=== PATIENT | male | born 1995 | race American Indian/Alaskan Native ===

== ENCOUNTER 2019-05-27 22:39 | Emergency (ER) | payer SELFPAY ==
[2019-05-27] MEDS ORDERED: IBUPROFEN 600 MG TAB PO ONE (23:12)
[2019-05-27 23:38] LABS: Hematocrit 48.4 % (35.5-45.6); Hemoglobin 15.8 gm/dl (11.8-15.2); Mean Corpuscular HGB Conc 33 % (32-34); Mean Corpuscular Volume 89 fl (84-94); Platelet Count 189 K/mm3 (140-440); Red Blood Count 5.45 M/mm3 (3.65-5.03); Red Cell Distribution Width 14.3 % (13.2-15.2)
[2019-05-28 00:23] LABS: Alanine Aminotransferase 9 units/L (7-56); Albumin 4.7 g/dL (3.9-5); BUN/Creatinine Ratio 12; Blood Urea Nitrogen 11 mg/dL (9-20); Calcium 9.6 mg/dL (8.4-10.2); Hemolysis Index 55
[2019-05-28] MEDS ORDERED: SODIUM CHLORIDE 0.9% 1000 ML 1,000 ML IV ONE (00:25)
[2019-05-28] MEDS ORDERED: ACETAMINOPHEN 325 MG TAB PO ONE (00:25)
--- NOTE | 2019-05-28 00:26 | XRay Report ---
CHEST 2 VIEWS INDICATION / CLINICAL INFORMATION: fever passed out. COMPARISON: None available. FINDINGS: SUPPORT DEVICES: None. HEART / MEDIASTINUM: No significant abnormality. LUNGS / PLEURA: No significant pulmonary or pleural abnormality. No pneumothorax. ADDITIONAL FINDINGS: No significant additional findings. IMPRESSION: 1. No acute findings. Signer Name: Parth Gunderson MD Signed: 05/28/2019 12:22 AM Workstation Name: [id number]
--- NOTE | 2019-05-28 00:41 | Emergency Department Report ---
HPI - General Chief Complaint: Fever Time Seen by Provider: 05/28/19 00:19 - HPI HPI: 24-year-old -[place] male presents to the emergency department with complaint of a 2-day history of fever, headache, sore throat. The patient took Tylenol earlier today without much relief. Patient also says that he passed out while riding in the car with his sister on the way to the hospital. He denies any cough, shortness of breath, vomiting, vision change, slurred speech. No past medical history. No recent travel or sick contacts at home. ED Past Medical Hx - Past Medical History Previous Medical History?: No - Surgical History Past Surgical History?: No - Social History Smoking Status: Former Smoker Substance Use Type: None - Medications Home Medications: Home Medications Medication Instructions Recorded Confirmed Last Taken Type Amoxicillin/Potassium Clav 1 each PO BID #14 tablet 05/28/19 Unknown Rx [Augmentin 875-125 Tablet] ED Review of Systems ROS: Stated complaint: CARTER/FEVER/SORE THROAT/PASSING OUT Other details as noted in HPI Constitutional: chills, fever Eyes: denies: eye pain, vision change ENT: throat pain. denies: ear pain Respiratory: denies: cough, shortness of breath Cardiovascular: syncope. denies: chest pain Gastrointestinal: denies: abdominal pain, vomiting Genitourinary: denies: dysuria, discharge Musculoskeletal: myalgia. denies: joint swelling Skin: denies: rash, lesions Neurological: headache. denies: weakness, numbness, paresthesias Physical Exam - Physical Exam Vital Signs: Vital Signs 05/27/19 05/27/19 23:05 23:08 Temperature 102.9 F H Pulse Rate 90 Respiratory 18 Rate Blood Pressure 127/71 O2 Sat by Pulse 99 Oximetry Physical Exam: GENERAL: The patient is well-developed well-nourished. HENT: Normocephalic. Atraumatic. Patient has moist mucous membranes. There is bilateral tonsillar hypertrophy, erythema and exudates. No drooling or trismus. EYES: Extraocular motions are intact. Pupils equal reactive to light bilaterally. NECK: Supple. Trachea is midline. CHEST/LUNGS: Clear to auscultation. There is no respiratory distress noted. HEART/CARDIOVASCULAR: Regular. There is no tachycardia. ABDOMEN: Abdomen is soft, nontender. Patient has normal bowel sounds. There is no abdominal distention. SKIN: Skin is warm and dry. NEURO: The patient is awake, alert, and oriented. The patient is cooperative. The patient has no focal neurologic deficits. Normal speech. Cranial nerves II through XII grossly intact. MUSCULOSKELETAL: There is no tenderness or deformity. There is no limitation range of motion. There is no evidence of acute injury. ED Course Vital Signs 05/27/19 05/27/19 23:05 23:08 Temperature 102.9 F H Pulse Rate 90 Respiratory 18 Rate Blood Pressure 127/71 O2 Sat by Pulse 99 Oximetry ED Medical Decision Making - Lab Data Result diagrams: 05/27/19 23:20 05/27/19 23:20 - EKG Data -: EKG Interpreted by Me EKG shows normal: sinus rhythm, axis, intervals, QRS complexes, ST-T waves Rate: normal - EKG Data When compared to previous EKG there are: previous EKG unavailable Interpretation: normal EKG - Radiology Data Radiology results: image reviewed interpreted by me: Chest x-ray does not show any acute process. There are no pleural effusions, obvious pneumonia and there is no pneumothorax. - Medical Decision Making This patient presents to the emergency department with a complaint of a 2-day history of headache, sore throat, fever and body aches. Negative for influenza a and B. No recent international travel or any known sick contacts. Positive for strep pharyngitis. Labs show a leukocytosis of 17,000. Normal-appearing metabolic panel. EKG did not show any signs of ST elevation AL or dysrhythmia. Patient was given IV fluid resuscitation, ibuprofen, Tylenol and a dose of clindamycin. Upon reevaluation his fever has resolved and the patient appears to be resting comfortably. He will be discharged home with Augmentin as treatment for his strep pharyngitis. We discussed using both Tylenol and ibuprofen for control of his fever and body aches. He has been instructed to follow-up with a primary care physician and to return to the emergency department with any worsening of his symptoms or any acute distress. - Differential Diagnosis Strep pharyngitis, influenza, viral URI, sepsis Critical Care Time: No Critical care attestation.: If time is entered above; I have spent that time in minutes in the direct care of this critically ill patient, excluding procedure time. ED Disposition Clinical Impression: Strep pharyngitis Fever Qualifiers: Fever type: unspecified Qualified Code(s): R50.9 - Fever, unspecified Syncope Qualifiers: Syncope type: unspecified Qualified Code(s): R55 - Syncope and collapse Disposition: TO HOME OR SELFCARE Is pt being admited?: No Condition: Stable Instructions: Strep Throat (ED), Fever in Adults (ED), Syncope (ED) Additional Instructions: Please follow-up with a primary care physician in the next few days. Return to the emergency department with any worsening of your symptoms, any further episodes of passing out, or with any acute distress. You can take Tylenol every 4-6 hours and ibuprofen every 6-8 hours, using the dosing on the back of the bottle, as needed for any fever or discomfort. Increase your oral rehydration. Do not share any food or drink with anyone. Please utilize lots of handwashing as to not spread infection. Prescriptions: Amoxicillin/Potassium Clav [Augmentin 875-125 Tablet] 1 each PO BID #14 tablet Referrals: PIEDAD NG MD [Staff Physician] - 2-3 Days [facility] [Outside] - 2-3 Days Forms: Work/School Release Form(ED) Time of Disposition: 02:16
[2019-05-28 01:03] LABS: Bilirubin,Urine NEG (Negative); Blood,Urine NEG (Negative); Color,Urine Yellow (Yellow); Mucus,Urine FEW /HPF; Protein,Urine <15 mg/dL mg/dL (Negative); RBC,Urine < 1.0 /HPF (0.0-6.0); Urobilinogen,Urine < 2.0 mg/dL (<2.0)
[2019-05-28 04:37] VITALS: BP 106/53
== END 2019-05-28 04:00 | disposition home or self-care (01) ==
LOC: ED 22:39
DX: J02.0 Streptococcal pharyngitis (principal); R55 Syncope and collapse; Z87.891 Personal history of nicotine dependence
CPT/HCPCS: 36415; 71046; 80053; 81001; 85027; 87400; 87430; 93005; 93010; 96365; 99284; J7030